=== PATIENT | female | born 1990 | race Caucasian/White ===

== ENCOUNTER 2025-01-06 06:04 | Emergency (ER) | payer SELFPAY ==
[~2025-01-06] VITALS: Ht 157.5 cm; Wt 77.3 kg
[~2025-01-06 06:04] MED LIST: NOCURR
[2025-01-06] MEDS: MAG HYDROX/ALUMINUM HYD/SIMETH ES 30 ML SUSPENSION UDCUP PO ONE (07:02)
[2025-01-06] MEDS: FAMOTIDINE 20 MG TABLET PO ONE (07:02)
[2025-01-06] MEDS: SODIUM CHLORIDE 0.9% 1,000 ML IV ONE (07:15)
[2025-01-06] MEDS: ONDANSETRON HCL 4 MG/2 ML VIAL IVP ONE (07:15)
[2025-01-06 07:36] LABS: CALCIUM, TOTAL 7.9 mg/dL (8.8-10.5); CREATININE 0.90 mg/dL (0.60-1.30); GLOMERULAR FILTR. RATE CALC > 60 mL/min (>60); GLUCOSE,RANDOM 104 mg/dL (70-110); SODIUM SERUM 141 mmol/L (136-145); UREA NITROGEN, BLOOD 7 mg/dL (7-18)
[2025-01-06 07:44] LABS: TROPONIN I-HIGH SENSITIVITY Less Than 4 ng/L (<51)
[2025-01-06 07:54] LABS: PLATELET COUNT (AUTO) 247 K/uL (150-450); RED BLOOD CELL COUNT(AUTO) 4.13 MIL/uL (4.00-5.20); RED CELL DISTRIBUTION WIDTH 16.2 % (11.5-14.5); WHITE BLOOD COUNT (AUTO) 5.1 K/uL (4.5-11.0)
[2025-01-06] MEDS ORDERED: OXYMETAZOLINE HCL 0.05% 15 ML NASAL SPRAY NASAL ONE (08:00)
[2025-01-06] MEDS ORDERED: FAMO20 PO (08:42)
[2025-01-06] MEDS ORDERED: CALC500T37 PO (08:42)
[2025-01-06] MEDS ORDERED: ONDA-104 PO (08:42)
[2025-01-06] MEDS: CALCIUM CARBONATE 500 MG CHEWABLE TABLET CHEW ONE (09:02)
[2025-01-06 09:14] VITALS: BP 112/88; PULSE 80; RESP 17; TEMP 97.2; O2SAT 98
== END 2025-01-06 09:15 | disposition home or self-care (01) ==
LOC: EMS 06:27
DX: K21.9 Gastro-esophageal reflux disease without esophagitis (principal); R10.13 Epigastric pain; Z98.890 Other specified postprocedural states
CPT/HCPCS: 99285; 96374; 71045; 96361; 80048; 83690; 83880; 84484; 85025; 85610; 85730; 36415; 93005; J2405; J7030